=== PATIENT | male | born 1975 | race Caucasian/White ===

== ENCOUNTER 2017-02-15 16:52 | Emergency (ER) | payer MEDICAID ==
[2017-02-15 17:04] VITALS: O2SAT 97
[2017-02-15 17:20] LABS: % IMMATURE GRANULYOCYTES 0.8 % (0.0-1.1); ABSOLUTE IMMATURE GRANULOCYTES 0.09 10^3/uL (0.00-0.10); ADD DIFF? NO; ADD MORPH? NO; ADD SCAN? NO; ATYPICAL LYMPHOCYTE FLAG 10 (0-99); FRAGMENT RBC FLAG 0 (0-99); HEMATOCRIT 46.5 % (40.0-51.0); HEMOGLOBIN 15.1 g/dL (13.7-17.5); LEFT SHIFT FLG 0 (0-99); LIPEMIA HEMOLYSIS FLAG 80 (0-99); MEAN CELL HEMOGLOBIN 27.4 pg (27.9-34.1); MEAN CELL HEMOGLOBIN CONCENTR. 32.5 g/dL (32.4-36.7); MEAN CELL VOLUME 84.4 fL (81.5-99.8); MEAN PLATELET VOLUME 9.2 fL (8.7-11.7); PLATELET CLUMPS FLAG 20 (0-99); PLATELET COUNT 383 10^3/uL (150-400); RED BLOOD CELL COUNT 5.51 10^6/uL (4.40-6.38); RED CELL DISTRIBUTION WIDTH 14.4 % (11.5-15.2)
--- NOTE | 2017-02-15 17:27 | EDPHY ---
H & P Time Seen by Provider: 02/15/17 17:08 HPI/ROS: CHIEF COMPLAINT: Bruising HISTORY OF PRESENT ILLNESS: 42-year-old man had aortic and mitral valve repair and replacement in October of 2003 after suffering endocarditis. He is on long- term warfarin therapy with target INR between 2.5 and 3.5. He last had it checked at the anticoagulation clinic in 3 weeks ago and was 2.9. He is here in [place] on vacation camping in the [facility], and was working really hard as recently as 4 days ago moving very heavy pallets. Over the past couple of days he noted a bruise on his left forearm and then another 1 on his left leg in the calf and now another 1 on his right armpit. He has had some intermittent nose bleeds but his gums do not believe when he brushes his teeth. He presents for concern about over anticoagulation. No vomiting or melena. REVIEW OF SYSTEMS: Eye: no change in vision ENT: no sore throat Cardiac: no chest pain or syncope Pulmonary: Not short of breath Abdomen: No black stools or abdominal pain Musculoskeletal: no back pain Skin: Bruising is noted in the HPI Neuro: no headache Constitutional: no fever : no urinary symptoms A comprehensive 10 point review of systems is otherwise negative aside from elements mentioned in the history of present illness. PAST MEDICAL HISTORY: Aortic and mitral valve repair as above. Social history: Lives in [place] has been vacationing in the [facility] [place]. General Appearance: Alert and conversant, cooperative. Eyes: No scleral icterus. ENT, Mouth: Normal mucous membranes. No intranasal bleeding. Respiratory: Normal respiratory effort, breath sounds equal, lungs are clear to auscultation. Cardiovascular: Regular rate and rhythm. Valve sound heard. Gastrointestinal: Abdomen is soft and non tender. Neurological: Alert and oriented x3. Normally conversant. Face symmetric, normal movement and sensation in all extremities. Skin: Bruise over the right axilla and the left leg behind the knee and on the left forearm. Palpable subcutaneous clot is felt in the right axilla and the left calf. Musculoskeletal: Some swelling over the bruise in the left calf is noted above. Multiple abrasions on the lower abdomen and the shins but no evidence of redness or tenderness or lymphangitis or pus or drainage. Psychiatric: Not agitated. Emergency Department course/MDM: CBC shows normal platelets. His usual dosing is 10 mg and 5 mg on alternate days. Plan to check INR. 174: Results discussed with the patient. His INR is 2.39. He usually gets bridge with Lovenox of his INR drops below 2.5 and so will give him a dose tonight and a prescription for the next week. He is warned he needs to get his INR rechecked and is given referral to our on-call primary care physician or he can call our employment case manager tomorrow. I think the most likely explanation is he has bruising from being on Coumadin and working very hard lifting heavy objects last week to complete his job tasks prior to going on vacation. 1820: reviewed weight, lovenox prescription revised to 80mg SQ bid. Smoking Status: Light smoker Constitutional: Initial Vital Signs Temperature (C) 37 C 02/15/17 16:59 Heart Rate 108 H 02/15/17 16:59 Respiratory Rate 16 02/15/17 16:59 Blood Pressure 152/116 H 02/15/17 16:59 O2 Sat (%) 97 02/15/17 16:59 O2 Delivery Mode Room Air Allergies/Adverse Reactions: vancomycin Allergy (Verified 02/15/17 17:47) Home Medications: Medication Instructions Recorded Amlodipine Besylate 02/15/17 Enoxaparin [Lovenox 80 MG (*)] 80 mg SQ BID #14 syr 02/15/17 Warfarin Sodium 02/15/17 Medical Decision Making Differential Diagnosis: Compartments are soft, I think compartment syndrome is unlikely. I think it is unlikely the patient has DVT or arterial occlusion or bony fracture. - Data Points Laboratory Results: Laboratory Results 02/15/17 17:15 02/15/17 02/15/17 17:15 17:15 WBC 11.18 10^3/uL H 10^3/uL (3.80-9.50) RBC 5.51 10^6/uL 10^6/uL (4.40-6.38) Hgb 15.1 g/dL g/dL (13.7-17.5) Hct 46.5 % % (40.0-51.0) MCV 84.4 fL fL (81.5-99.8) MCH 27.4 pg L pg (27.9-34.1) MCHC 32.5 g/dL g/dL (32.4-36.7) RDW 14.4 % % (11.5-15.2) Plt Count 383 10^3/uL 10^3/uL (150-400) MPV 9.2 fL fL (8.7-11.7) Neut % (Auto) 72.7 % % (39.3-74.2) Lymph % (Auto) 13.3 % L % (15.0-45.0) Dale % (Auto) 8.4 % % (4.5-13.0) Eos % (Auto) 3.9 % % (0.6-7.6) Baso % (Auto) 0.9 % % (0.3-1.7) Nucleat RBC Rel Count 0.0 % % (0.0-0.2) Absolute Neuts (auto) 8.12 10^3/uL H 10^3/uL (1.70-6.50) Absolute Lymphs (auto) 1.49 10^3/uL 10^3/uL (1.00-3.00) Absolute Monos (auto) 0.94 10^3/uL H 10^3/uL (0.30-0.80) Absolute Eos (auto) 0.44 10^3/uL H 10^3/uL (0.03-0.40) Absolute Basos (auto) 0.10 10^3/uL 10^3/uL (0.02-0.10) Absolute Nucleated RBC 0.00 10^3/uL 10^3/uL (0-0.01) Immature Gran % 0.8 % % (0.0-1.1) Immature Gran # 0.09 10^3/uL 10^3/uL (0.00-0.10) PT 26.3 SEC H SEC (12.0-15.0) INR 2.39 H (0.83-1.16) Medications Given: Discontinued Medications Enoxaparin Sodium (Lovenox) 90 mg SC EDNOW ONE Stop: 02/15/17 17:47 Last Admin: 02/15/17 18:16 Dose: 90 mg Departure - Departure Disposition: Home, Routine, Self-Care Clinical Impression: Bruising, Warfarin-induced coagulopathy Condition: Good Instructions: Warfarin (By mouth) Additional Instructions: Continue to bridge with Lovenox until INR therapeutic. Please get it recheck this week. You can try our on-call primary care physician or call tomorrow to the emergency department during the day and ask for the employment case manager- [phone]. Referrals: Sharonda Rosario MD [[facility] [place]] - As per Instructions Prescriptions: Enoxaparin [Lovenox 100 MG (*)] 90 mg SQ Q12 #14 syr
[2017-02-15 17:33] LABS: INR 2.39 (0.83-1.16); PROTIME(PATIENT) 26.3 SEC (12.0-15.0)
[2017-02-15] MEDS ORDERED: ENOXAPARIN 100 MG/ML SYR SC ONE (17:46)
[2017-02-15 18:17] VITALS: BP 146/102; PULSE 78; RESP 18; TEMP 97.9
== END 2017-02-15 18:17 | disposition home or self-care (01) ==
DX: M79.81 Nontraumatic hematoma of soft tissue (principal); R79.1 Abnormal coagulation profile; F17.200 Nicotine dependence, unspecified, uncomplicated; Z79.01 Long term (current) use of anticoagulants
CPT/HCPCS: J1650